=== PATIENT | female | born 1985 | race Caucasian/White ===

== ENCOUNTER 2023-01-30 09:23 | Emergency (ER) | payer OTHER, SELFPAY ==
[2023-01-30 09:35] VITALS: BP 118/80; PULSE 87; RESP 16; TEMP 37.4; O2SAT 100; BMI 25.1
--- NOTE | 2023-01-30 10:43 | ED.GENADUL1 ---
HPI - General Adult General Chief complaint: Extremity Problem, Nontraumatic Stated complaint: UPPER EXTREMITY PAIN RIGHT ELBOW Time Seen by Provider: 01/30/23 10:22 Source: patient Mode of arrival: walk-in Limitations: no limitations History of Present Illness HPI narrative: Patient is a 37yo -female who is presenting with 3 month history of intermittent pain from the right elbow to the right forearm to the right wrist. Patient has a friend who is a pediatric plastic surgeon. 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 Patient is trying to establish a PCP with her insurance. Patient has not seen orthopedic surgery yet. Patient has been wearing a tennis elbow brace to the right arm to help somewhat. Patient does not like taking pain medication [id number], including Tylenol or Motrin. Patient has been using ice. Patient's still having pain to the right elbow, right forearm and right wrist with no improvement in 3 months. Patient is presenting to the Emergency Room. Patient has no significant unilateral swelling, no pain at posterior aspect of the right arm. No chest pain, shortness of breath, or any other acute complaints. . All systems are negative except as noted/marked. All systems reviewed and otherwise negative. . Nurses note and vital signs reviewed and patient is not hypoxic. General: The patient appears well and in no apparent distress. Patient is resting comfortably on cart. Patient is not toxic, lethargic, or listless Skin: Warm, dry, no pallor noted. There is no rash noted. No petechiae, purpura. Full tattoos, no secondary signs of infection. Head: Normocephalic, atraumatic Eye: Normal conjunctiva, no drainage, EOMI. PERRL Ears, Nose, Mouth, and Throat: oral mucosa is moist. Nares patent. Mouth without vesicles. Cardiovascular: Regular Rate and Rhythm, no murmur, gallop, rub Respiratory: Patient is in no distress, no accessory muscle use, lungs are clear to auscultation, no wheezing, rales or rhonchi Musculoskeletal: Patient has full range of motion of all of the extremities Except to the right elbow, forearm, and wrist. Patient has pain mild to the medial and lateral epicondyle, mild pain to the right elbow with supination and pronation. No signs of compartment syndrome to the right forearm, mild pain with flexion and extension and abduction and abduction to the right wrist. No deformities or signs of fractures. Patient has no significant unilateral swelling to the right upper extremity, no pain to the posterior aspect of the right upper extremity that was suggest deep vein thrombosis, no motor, sensory, or focal neurological deficits Neurological: A&O x3, normal speech Psychiatric: Cooperative Related Data Home Medications Medication Instructions Recorded Confirmed No Known Home Medications 01/30/23 01/30/23 Allergies Allergy/AdvReac Type Severity Reaction Status Date / Time Latex, Natural Rubber Allergy Severe Verified 01/30/23 09:35 sumatriptan [From Imitrex] AdvReac Severe nausea and Verified 01/30/23 09:40 vomiting PFSH PFSH Social History Smoking status: Light tobacco smoker Exam Constitutional Vital Signs, click to edit/add: Last Vital Signs Temp 99.4 F 01/30/23 09:35 Pulse 87 01/30/23 09:35 Resp 16 01/30/23 09:35 BP 118/80 01/30/23 09:35 Pulse Ox 100 01/30/23 09:35 O2 Del Method Room Air 01/30/23 09:35 Course Vital Signs Vital signs: Vital Signs Temperature 99.4 F 01/30/23 09:35 Pulse Rate 87 01/30/23 09:35 Respiratory Rate 16 01/30/23 09:35 Blood Pressure 118/80 01/30/23 09:35 Pulse Oximetry 100 01/30/23 09:35 Oxygen Delivery Method Room Air 01/30/23 09:35 Temperature 99.4 F 01/30/23 09:35 Pulse Rate 87 01/30/23 09:35 Respiratory Rate 16 01/30/23 09:35 Blood Pressure 118/80 01/30/23 09:35 Pulse Oximetry 100 01/30/23 09:35 Oxygen Delivery Method Room Air 01/30/23 09:35 Medical Decision Making MDM Narrative Medical decision making narrative: Patient will continue wearing her tennis elbow brace that she is using, patient was also given a right wrist cock-up splint. Patient will continue ice. It was recommended that the patient use cbzy-gdb-gthvred anti-inflammatories and Tylenol help treat pain. Patient says that she does not like taking pjbc-wpe-nbyzhik medication for pain. Patient will follow-up with and establish PCP, patient was thankful for set up with Dr. Oates on Sunday. Patient was given a right wrist cock-up splint. Splint was assisted with . the patient was neurovascularly intact before and after the splint was placed. the affected bones/injured area had proper alignment in a splint. Education on splint care at home was given at bedside. Patient and family have no questions at discharge. Patient had a scheduled appointment with Dr. Oates at 11:00 on February 05. Discharge Plan Discharge Chief Complaint: Extremity Problem, Nontraumatic Clinical Impression: Wrist pain, right, Pain in joint of right elbow Patient Disposition: Home, Self-Care Time of Disposition Decision: 10:48 Condition: Good Mode of Transportation: Private Vehicle Prescriptions / Home Meds: No Action No Known Home Medications Instructions: Wrist Injury (ED), Splint Care (ED), Arthralgia (ED), Arm Pain (ED) Additional Instructions: . Ice 20 minutes on, 20 minutes off. Continue to wear your right elbow splint and also wear your right wrist splint besides ice and shower. He had an appointment with Dr. Oates at 0900AM on Sunday, FEB 05. Stand Alone Forms: Portal Instructions Referrals: Physician,Non-Staff, [Primary Care Provider] - 1 week Herman Oates MD [Physician] - 1 week Discharge Date/Time: 01/30/23 10:49
== END 2023-01-30 10:49 | disposition home or self-care (01) ==
PROVIDERS: Emergency Provider Emergency Medicine
DX: M25.531 Pain in right wrist (principal); M25.521 Pain in right elbow
CPT/HCPCS: 99283

== ENCOUNTER 2024-03-09 14:57 | Observation (INO) | payer OTHER, SELFPAY ==
[2024-03-09] VITALS (28 sets, daily range): BP systolic 73–130; BP diastolic 49–80; PULSE 68–125; TEMP 36.8–37.6; O2SAT 97–100; BMI 29.3; BMI 29.6
--- NOTE | 2024-03-09 15:18 | ECG_ITS ---
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
[2024-03-09] MEDS: 0.9 % SODIUM CHLORIDE 1,000 ML 1000 ML IV ×2 (15:32→17:03)
[2024-03-09] MEDS: ONDANSETRON PF 4 MG/2 ML VIAL IV (15:32)
[2024-03-09 15:33] LABS: Basophils Percent Auto 0.2 % (0.2-2.0); Eosinophils Absolute Auto 0.1 10^3/uL (0.0-0.7); Hematocrit 35.4 % (36.0-48.0); Hemoglobin 12.1 g/dL (12.0-16.0); Immature Granulocytes Abs Auto 0.03 10^3/uL (0.00-0.03); Immature Granulocytes Pct Auto 0.3 % (0.0-0.5); Lymphocytes Percent Auto 19.2 % (20.5-60.0); Mean Corpuscular HGB Conc 34.2 g/dL (29.9-35.2); Mean Corpuscular Hemoglobin 31.7 pg (26.7-34.0); Mean Corpuscular Volume 92.7 fL (81.0-99.0); Mean Platelet Volume 9.2 fL (9.5-13.5); Monocytes Absolute Auto 0.5 10^3/uL (0.3-0.8); Monocytes Percent Auto 5.2 % (1.7-12.0); Neutrophils Absolute Auto 7.6 10^3/uL (1.4-6.5); Neutrophils Percent Auto 74.1 % (43.0-75.0); Platelet Count 262 10^3/uL (150-450); Red Blood Count 3.82 10^6/uL (4.20-5.40); Red Cell Distribution Width 11.4 % (11.0-15.0); White Blood Count 10.3 10^3/uL (4.0-11.0)
[2024-03-09 15:46] LABS: INR 1.06; Prothrombin Time 11.2 sec (9.0-11.6)
[2024-03-09 16:11] LABS: Alanine Aminotransferase 32 U/L (14-59); Albumin Globulin Ratio 0.5; Albumin Level 2.1 g/dL (3.4-5.0); Alkaline Phosphatase 49 U/L (46-116); Anion Gap 16.6; Aspartate Amino Transferase 22 U/L (15-37); BUN Creatinine Ratio 10.1; Bilirubin Total 0.7 mg/dL (0.2-1.0); Calcium 9.1 mg/dL (8.5-10.1); Carbon Dioxide 23.8 mmol/L (21.0-32.0); Chloride 102 mmol/L (98-107); Estimated GFR (African America >60 (>=60 mL/min/1.73m^2); Estimated GFR (Non-African Ame >60 (>=60 mL/min/1.73m^2); Globulin 4.5 g/dL; Glucose 119 mg/dL (74-106); HCG Quantitative 4041 mIU/mL; Potassium 3.4 mmol/L (3.5-5.1); Sodium 139 mmol/L (136-145); Total Protein 6.6 g/dL (6.4-8.2); Troponin I High Sensitivity <4.0 pg/mL (4.0-51.3)
--- NOTE | 2024-03-09 16:20 | ED_ITS ---
HPI - Female Genitourinary General Chief complaint: Vaginal Bleeding Stated complaint: MISCARRIAGE Time Seen by Provider: 03/09/24 15:18 Mode of arrival: Wheelchair History of Present Illness HPI Narrative: The patient is a 7 weeks is coming to the ER after she started having vaginal bleeding this morning, she mentioned that she already had her ultrasound done on February 27 with her OB physician and she did have a heartbeat at that time but she had intrauterine The patient this is her third with the first 1 was complete and the second 1 in October 2023 also ended up in miscarriage Patient started bleeding this morning she mentioned that she has been changing 1 pad every half an hour almost since the morning and she also has been feeling dizzy when she stands up and walk she almost passed out twice when she is coming to the ER Related Data Home Medications ?Medication ?Instructions ?Recorded ?Confirmed azithromycin 250 mg tablet 250 mg PO Q12H 03/09/24 03/09/24 Allergies Allergy/AdvReac Type Severity Reaction Status Date / Time Latex, Natural Rubber Allergy Severe Verified 01/30/23 09:35 sumatriptan (From Imitrex) AdvReac Severe nausea and Verified 01/30/23 09:40 vomiting Review of Systems ROS Status of ROS 10 or more systems reviewed and unremark able except as noted in history and below PFSH PFSH Social History Smoking status: Light tobacco smoker Little interest or pleasure in doing things: not at all Feeling down, depressed, or hopeless: not at all Exam Narrative Exam Narrative: Nurses notes and vital signs reviewed and patient is not hypoxic. General: Well-appearing and in no apparent distress. Skin: Warm, dry, no pallor noted. No rash. Head: Normocephalic, atraumatic. Neck: Supple, non-tender. Eye: Pupils are equal, round and EOMI. No scleral icterus. Ears, Nose, Mouth, and Throat: TM are clear, no nasal mucosal hypertrophy. Oral mucosa is moist, no posterior oropharynx erythema, uvula is mid-line Cardiovascular: Regular Rate and Rhythm without murmur, gallop or rub. Respiratory: No accessory muscle use or respiratory distress. Lungs are clear to auscultation, no wheezing, rales or rhonchi Chest Wall: no tenderness Back: No midline thoracic or lumbar vertebral tenderness. No CVA tenderness Musculoskeletal: normal ROM, no calf or popliteal tenderness, no lower extremity edema/swelling GI: Abdomen is soft, non-distended. Normal bowel sounds. No masses appreciated. Suprapubic tenderness noted and discomfort ,no rebound, guarding, or rigidity noted. Neurological: A&O x4. No cranial nerve dysfunction observed. No truncal ataxia. Moves all extremities. Sensation intact. Psychiatric: Cooperative and interactive. Normal mood and affect. Constitutional Vital Signs, click to edit/add: Last Vital Signs Temp 98.2 F 03/09/24 15:07 Pulse 88 03/09/24 16:06 Resp 18 03/09/24 15:07 BP 114/75 03/09/24 16:06 Pulse Ox 99 03/09/24 16:00 O2 Del Method Room Air 03/09/24 16:00 Course Vital Signs Vital signs: Vital Signs Temperature 98.2 F 03/09/24 15:07 Pulse Rate 81 03/09/24 15:07 Respiratory Rate 18 03/09/24 15:07 Blood Pressure 130/80 03/09/24 15:07 Pulse Oximetry 100 03/09/24 15:07 Oxygen Delivery Method Room Air 03/09/24 15:07 Temperature 98.2 F 03/09/24 15:07 Pulse Rate 88 03/09/24 16:06 Respiratory Rate 18 03/09/24 15:07 Blood Pressure 114/75 03/09/24 16:06 Pulse Oximetry 99 03/09/24 16:00 Oxygen Delivery Method Room Air 03/09/24 16:00 MDM - Female Genitourinary MDM Narrative Medical decision making narrative: The patient hemoglobin is normal at 12 And the EKG upon arrival showing sinus rhythm with a heart rate of [address] elevation or depression The patient was orthostatic in the ER she did had 1 pad change after half an hour when she was in the ER The patient chemistry otherwise is normal and the patient blood type is O+ Patient case was discussed with Dr. Winn and OB service and she did not recommend the patient to get any blood at the moment as this could be vasovagal The patient will be admitted under Dr. Winn's service Lab Data Labs: Lab Results 03/09/24 Range/Units 15:26 WBC 10.3 (4.0-11.0) 10^3/uL RBC 3.82 L (4.20-5.40) 10^6/uL Hgb 12.1 (12.0-16.0) g/dL Hct 35.4 L (36.0-48.0) % MCV 92.7 (81.0-99.0) fL MCH 31.7 (26.7-34.0) pg MCHC 34.2 (29.9-35.2) g/dL RDW 11.4 (11.0-15.0) % Plt Count 262 (150-450) 10^3/uL MPV 9.2 L (9.5-13.5) fL Neut % (Auto) 74.1 (43.0-75.0) % Lymph % (Auto) 19.2 L (20.5-60.0) % [place] % (Auto) 5.2 (1.7-12.0) % Eos % (Auto) 1.0 (0.9-7.0) % Baso % (Auto) 0.2 (0.2-2.0) % Neut # (Auto) 7.6 H (1.4-6.5) 10^3/uL Lymph # (Auto) 2.0 (1.2-3.8) 10^3/uL [place] # (Auto) 0.5 (0.3-0.8) 10^3/uL Eos # (Auto) 0.1 (0.0-0.7) 10^3/uL Baso # (Auto) 0.0 (0.0-0.1) 10^3/uL Abs Immat Gran (auto) 0.03 (0.00-0.03) 10^3/uL Imm/Tot Granulo (auto) 0.3 (0.0-0.5) % PT 11.2 (9.0-11.6) sec INR 1.06 Sodium 139 (136-145) mmol/L Potassium 3.4 L (3.5-5.1) mmol/L Chloride 102 (98-107) mmol/L Carbon Dioxide 23.8 (21.0-32.0) mmol/L Anion Gap 16.6 BUN 7.0 (7.0-18.0) mg/dL Creatinine 0.69 (0.55-1.02) mg/dL Est GFR ( Amer) >60 (>=60 mL/min/1.73m^2) Est GFR (Non-Af Amer) >60 (>=60 mL/min/1.73m^2) BUN/Creatinine Ratio 10.1 Glucose 119 H (74-106) mg/dL Calcium 9.1 (8.5-10.1) mg/dL Total Bilirubin 0.7 (0.2-1.0) mg/dL AST 22 (15-37) U/L ALT 32 (14-59) U/L Alkaline Phosphatase 49 (46-116) U/L Troponin I High Sens <4.0 L (4.0-51.3) pg/mL Total Protein 6.6 (6.4-8.2) g/dL Albumin 2.1 L (3.4-5.0) g/dL Globulin 4.5 g/dL Albumin/Globulin Ratio 0.5 HCG, Quant 4041 mIU/mL Blood Type O Positive Antibody Screen Negative Crossmatch See Detail Discharge Plan Discharge Chief Complaint: Vaginal Bleeding Clinical Impression: Miscarriage, Vaginal bleeding, Hypotension Patient Disposition: Admitted as Observation Time of Disposition Decision: 16:54
[2024-03-09] MEDS: ACETAMINOPHEN 325 MG TABLET 650 MG PO (18:10)
[2024-03-09] MEDS: ONDANSETRON PF 4 MG/2 ML VIAL 6 MG IV (21:13)
[2024-03-09] MEDS: TEMAZEPAM 15 MG CAPSULE PO (21:13)
[2024-03-09] MEDS: DEXTROSE 5%-LACTATED RINGERS 1,000 ML 125 ML IV (21:18)
[2024-03-10] VITALS (11 sets, daily range): BP systolic 99–107; BP diastolic 65–73; PULSE 60–97; TEMP 36.8–36.9; O2SAT 98
[2024-03-10] MEDS: DEXTROSE 5%-LACTATED RINGERS 1,000 ML 125 ML IV ×2 (05:19→13:30)
[2024-03-10] MEDS: IBUPROFEN 400 MG TABLET 800 MG PO (05:19)
--- NOTE | 2024-03-10 05:22 | PC.NURSE ---
pt has changed 4 pads throughout the night. pt does not have any complaints of nausea but does have some cramping at this time.
--- NOTE | 2024-03-10 09:51 | US_ITS ---
The [address] [address] Patient Name: IVELISSE VELÁZQUEZ MRN: [id number] date: 1985 Sex: F Assigned Patient Location: [place] Current Patient Location: [place] Accession/Order Number: [id number] Exam Date: 03/10/2024 11:00 Report Date: 03/10/2024 13:51 At the request of: ALEXIS BANDA Procedure: US pelvis transvaginal EXAM: US pelvis transvaginal HISTORY: possibe miscarriage COMPARISON: None. TECHNIQUE: Transvaginal and transabdominal imaging was performed utilizing grayscale, color Doppler, and spectral imaging. LMP: Unknown. : 3 Para: 1, A: 2 FINDINGS: Antiverted uterus, normal in size. Uterus description: Homogeneous echotexture without evidence of fibroid. Endometrial thickness: 1.5 mm. (Normal premenopausal thickness is less than 15 mm. Normal postmenopausal thickness is less than 5 mm) Endometrial description: Mild thickened and heterogeneous without vascular flow, representing blood clot Right ovary: Measurements: 3.8 x 2.3 x 2.7 cm = 12.7 mL. Description: Unremarkable appearance of the ovary without suspicious lesion. There is a simple cyst. Vasculature: Normal color waveform. Left ovary: Measurements: 2.1 x 1.1 x 2.1 cm = 2.3 mL. Description: Unremarkable appearance of the ovary without suspicious lesion. Vasculature: Normal color waveform. Adnexa: Unremarkable. Cul-de-sac: No free fluid. Additional findings: None. US/US pelvis transvaginal IMPRESSION: No intrauterine or ectopic . No ovarian torsion at the time of examination. Electronically authenticated by: RENEE GARCIA Date: 03/10/2024 13:51
[2024-03-10] MEDS: ONDANSETRON PF 4 MG/2 ML VIAL IV (10:08)
[2024-03-10 10:25] LABS: Basophils Percent Auto 0.1 % (0.2-2.0); Eosinophils Absolute Auto 0.2 10^3/uL (0.0-0.7); Eosinophils Percent Auto 2.1 % (0.9-7.0); Hematocrit 26.6 % (36.0-48.0); Immature Granulocytes Abs Auto 0.02 10^3/uL (0.00-0.03); Immature Granulocytes Pct Auto 0.3 % (0.0-0.5); Lymphocytes Absolute Auto 1.9 10^3/uL (1.2-3.8); Lymphocytes Percent Auto 27.2 % (20.5-60.0); Mean Corpuscular HGB Conc 33.8 g/dL (29.9-35.2); Mean Corpuscular Hemoglobin 31.9 pg (26.7-34.0); Mean Corpuscular Volume 94.3 fL (81.0-99.0); Mean Platelet Volume 9.4 fL (9.5-13.5); Monocytes Absolute Auto 0.4 10^3/uL (0.3-0.8); Monocytes Percent Auto 5.4 % (1.7-12.0); Neutrophils Absolute Auto 4.6 10^3/uL (1.4-6.5); Neutrophils Percent Auto 64.9 % (43.0-75.0); Platelet Count 194 10^3/uL (150-450); Red Blood Count 2.82 10^6/uL (4.20-5.40); Red Cell Distribution Width 11.6 % (11.0-15.0); White Blood Count 7.1 10^3/uL (4.0-11.0)
[2024-03-10 11:15] LABS: HCG Quantitative 2331 mIU/mL
--- NOTE | 2024-03-11 16:04 | CM.DCFOLLOWU ---
Person spoke with:patient How are you feeling? alright How is your pain? none Did you understand your discharge instructions?yes Do you have any questions about your discharge instructions?no Were you given any prescriptions at discharge? no Were you able to get your prescriptions filled?N/A Do you understand how to take your medications as ordered?N/A Do you have any questions about your follow up appointment and do you plan to keep your follow up appointment? no questions, saw Cece today for f/u Is there anything else that you would like to discuss?no Questions/Comments/Concerns/Other:none
== END 2024-03-10 17:39 | disposition home or self-care (01) ==
LOC: ER 16:54 → MS 19:15
PROVIDERS: Obstetrics & Gynecology; Admitting Provider Obstetrics & Gynecology; Emergency Provider Emergency Medicine; Visit Provider Obstetrics & Gynecology
DX: O03.9 Complete or unspecified spontaneous abortion without complication (principal); O99.331 Smoking (tobacco) complicating pregnancy, first trimester; F17.200 Nicotine dependence, unspecified, uncomplicated; Z3A.01 Less than 8 weeks gestation of pregnancy; I95.9 Hypotension, unspecified; O26.891 Other specified pregnancy related conditions, first trimester
CPT/HCPCS: 36415; 76830; 80053; 84484; 84702; 85025; 85610; 86850; 86900; 86901; 86923; 93005; 96361; 96374; 96376; 99285; G0378; J2405